=== PATIENT | male | born 1995 | race Caucasian/White ===

== ENCOUNTER 2018-12-26 13:12 | Emergency (ER) | payer OTHER ==
[~2018-12-26] VITALS: Ht 182.9 cm; Wt 82.0 kg
[2018-12-26] MEDS ORDERED: DIAZEPAM 5 MG TABLET PO ONE (14:00)
[2018-12-26] MEDS ORDERED: KETOROLAC 30 MG/1 ML IM ONE (14:00)
[2018-12-26] MEDS ORDERED: FLUO20CA19 PO (14:29)
[2018-12-26] MEDS ORDERED: AMIT100T PO (14:29)
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
--- NOTE | 2018-12-26 15:14 | NUR ---
PT SITTING UPRIGHT ON BED, USING HIS CELL PHONE. C-COLLAR REMOVED EARLIER PER PROVIDER.
[2018-12-26 15:57] VITALS: BP 110/71
== END 2018-12-26 16:00 | disposition home or self-care (01) ==
LOC: ED 15:54
DX: S16.1XXA Strain of muscle, fascia and tendon at neck level, initial encounter (principal); G40.909 Epilepsy, unspecified, not intractable, without status epilepticus; V49.59XA Passenger injured in collision with other motor vehicles in traffic accident, initial encounter; Y93.89 Activity, other specified; Y92.89 Other specified places as the place of occurrence of the external cause; Y99.8 Other external cause status
CPT/HCPCS: 72125; 96372; 99284; J1885